=== PATIENT | female | born 1970 | race Caucasian/White ===

== ENCOUNTER 2016-07-21 10:13 | Emergency (ER) | payer OTHER ==
[~2016-07-21] VITALS: Ht 165.1 cm; Wt 86.0 kg
[~2016-07-21 10:13] MED LIST: ASPI1TAB7 PO; CYCL5TAB PO; HYDR-4246 PO; IBUP-1547 PO; IBUP-1724 PO; MULT-942 PO CHEW
--- OUTSIDE RECORDS SUMMARY | 2016-07-21 10:18 | XMS REPORT | Continuity of Care Document ---
Author Author [facility] Organization [facility] Address Unknown Phone Unavailable Support Name Relationship Address Phone AMIRA CHAKRABORTY MD Caregiver [address] [place] [address] CARRILLO KENNEDY MD Caregiver [address] [place] [address] [place] [phone] PANTERA CANALES Next Of Kin [address] [place], [place] [id number] Insurance Providers Payer Name Policy Number Subscriber Name Relationship Meritain n [id number] Dimitrios Vega 17 Self Advance Directives Directive Response Recorded Date/Time Advanced Directives Type None 02/14/14 8:15pm Problems Medical Problems Problem Onset Date Status Paronychia Unknown Active Medications Medication Dose Route Sig Days/Qty Instructions Order Date Discontinued Date Status ["Water Pill"] 06/25/09 12/10/09 Discontinued Amitriptyline Hcl 1 Tab PO BEDTIME 12/10/09 08/19/10 Discontinued Potassium Chloride 1 Tab PO DAILY 12/10/09 08/19/10 Discontinued [Depo-Provera] EVERY 3 MONTHS 12/10/09 08/19/10 Discontinued Allopurinol 300 Mg PO DAILY 12/10/09 08/19/10 Discontinued Chlorthalidone 25 Mg PO DAILY 12/10/09 08/19/10 Discontinued Diltiazem Hcl 60 Mg PO DAILY 12/10/09 08/19/10 Discontinued Promethazine Hcl 25 Mg PO DAILY 12/10/09 08/19/10 Discontinued Furosemide 20 Mg PO DAILY 12/10/09 08/19/10 Discontinued Phentermine Hcl 1 Cap PO DAILY 03/06/10 08/19/10 Discontinued Pilocarpine Hcl 1 Tab PO THREE TIMES A DAY 03/06/10 08/19/10 Discontinued [no medications] 02/14/14 Active Sulfamethoxazole/Trimethoprim 1 Tab PO TWICE A DAY 20 Qty 02/14/14 Active Hydrocodone/Acetaminophen 1 Tab PO EVERY 4-6 HOURS PRN PAIN 15 Qty Active Social History Social History Problem Response Recorded Date/Time Smoking Status Never smoker 02/14/2014 8:17pm Chewing Tobacco Status No 02/14/2014 8:17pm Hx Substance Use No 02/14/2014 8:17pm Hx Alcohol Use Y RARELY 02/14/2014 8:17pm Hospital Discharge Instructions No hospital discharge instructions. Plan of Care No plan of care. Functional Status Query Response Date Recorded Physical Hygiene Self February 14, 2014 8:17pm Disabilities None February 14, 2014 8:17pm Devices Used None February 14, 2014 8:17pm Dressing Self February 14, 2014 8:17pm Ambulation Self February 14, 2014 8:17pm Diet Self February 14, 2014 8:17pm Mental Status Alert Oriented February 14, 2014 8:17pm Disabilities None February 14, 2014 8:17pm Devices Used None February 14, 2014 8:17pm Physical Hygiene Self February 14, 2014 8:17pm Dressing Self February 14, 2014 8:17pm Ambulation Self February 14, 2014 8:17pm Diet Self February 14, 2014 8:17pm Allergies, Adverse Reactions, Alerts Allergen Type Severity Reaction Status Last Updated ketorolac tromethamine Adverse Reaction Unknown VOMITING,HOT,SICK Active 02/14/14 Morphine Adverse Reaction Unknown NAUSEA, HEADACHE Active 02/14/14 Immunizations Name Given Type Hx Influenza Vaccination N Historical Hx Pneumococcal Vaccination No Historical Hx Influenza Vaccination N Historical Vital Signs Acute Vital Signs Vital Response Date/Time Temperature (Fahrenheit) 97.4 deg F (96.8 - 99.1) Temperature (Calculated Celsius) 36.77182 degrees C (36.0 - 37.3) Pulse Rate (adult) 78 bpm (60 - 100) Respiratory Rate 14 breaths/min (10 - 20) O2 Sat by Pulse Oximetry 97 % (90 - 100) Blood Pressure 148/88 mm Hg Height 5 ft 6 in Weight 113 lb Body Mass Index 18.0 kg/m^2 Results Test Source Date Result Interp. Ref. Range Comments Alanine Aminotransferase (ALT/SGPT) August 25, 2011 3:15pm 34 U/L N 9-52 Albumin August 25, 2011 3:15pm 5.0 G/DL N 3.5-5.0 Albumin/Globulin Ratio August 25, 2011 3:15pm 1.7 RATIO N 1.1-2.2 Alkaline Phosphatase August 25, 2011 3:15pm 126 U/L N 38-126 Amylase Level August 25, 2011 3:15pm 54 U/L N 30-110 Anion Gap August 25, 2011 3:15pm 15 MEQ/L N 5-15 Aspartate Amino Transf (AST/SGOT) August 25, 2011 3:15pm 30 U/L N 14-36 BUN/Creatinine Ratio August 25, 2011 3:15pm 16 RATIO N 6-26 Basophils # (Auto) August 25, 2011 3:15pm 0.0 T/MM3 N 0-0.2 Basophils (%) (Auto) August 25, 2011 3:15pm 0.3 % N 0-2 Blood Urea Nitrogen August 25, 2011 3:15pm 13.0 MG/DL N 7-17 Calcium Level August 25, 2011 3:15pm 10.2 MG/DL N 8.4-10.2 Calculated Osmolality August 25, 2011 3:15pm 275 MOSM/KG N 261-280 Carbon Dioxide Level August 25, 2011 3:15pm 22 MEQ/L N 22-30 Chloride Level August 25, 2011 3:15pm 106 MEQ/L N 98-107 Cholesterol Level December 01, 2009 7:51am 145 MG/DL N 132-199 Cholesterol/HDL Ratio December 01, 2009 7:51am 5.2 RATIO H 0-4.0 Conjugated Bilirubin March 06, 2010 10:30am 0.00 MG/DL N 0.00-0.30 Creatinine August 25, 2011 3:15pm 0.8 MG/DL N 0.7-1.2 Eosinophils # (Auto) August 25, 2011 3:15pm 0.1 T/MM3 N 0-0.5 Eosinophils (%) (Auto) August 25, 2011 3:15pm 0.8 % N 0-4 Globulin August 25, 2011 3:15pm 2.9 G/DL N 2.4-3.6 Glucose Level August 25, 2011 3:15pm 94 MG/DL N 65-110 Helicobacter pylori Antibodies August 25, 2011 3:15pm Negative - Helicobacter pylori IgG Antibody September 12, 2008 8:49am Sent out - Hematocrit August 25, 2011 3:15pm 44.9 % N 36-46 Hemoglobin August 25, 2011 3:15pm 15.5 GM/DL N 12-16 Hemoglobin A1c August 25, 2011 3:15pm 5.4 % L 6-7 <6.0 NON-DIABETIC RANGE6.0-7.0 ADA THERAPEUTIC RANGE >7.0 ACTION SUGGESTED Human Chorionic Gonadotropin, Qual August 19, 2010 12:00am Negative - LDL Cholesterol, Calculated December 01, 2009 7:51am 64.6 L 66-159 Lipase August 25, 2011 3:15pm 94 U/L N 23-300 Lymphocytes # (Auto) August 25, 2011 3:15pm 2.1 T/MM3 N 1-4.8 Lymphocytes (%) (Auto) August 25, 2011 3:15pm 35.1 % N 23-45 Mean Corpuscular Hemoglobin August 25, 2011 3:15pm 28.6 UUG N 26-34 Mean Corpuscular Hemoglobin Concent August 25, 2011 3:15pm 34.5 GM/DL N 31- 37 Mean Corpuscular Volume August 25, 2011 3:15pm 82.8 UM3 N 80-100 Mean Platelet Volume August 25, 2011 3:15pm 10.1 UM3 N 9.4-12.4 Monocytes # (Auto) August 25, 2011 3:15pm 0.4 T/MM3 N 0-0.8 Monocytes (%) (Auto) August 25, 2011 3:15pm 7.0 % N 0-9.0 Neutrophils # (Auto) August 25, 2011 3:15pm 3.4 T/MM3 N 1.8-7.7 Neutrophils (%) (Auto) August 25, 2011 3:15pm 56.6 % N 33-66 Platelet Count August 25, 2011 3:15pm 244 T/MM3 N 130-400 Potassium Level August 25, 2011 3:15pm 3.9 MEQ/L N 3.6-5 RDW Standard Deviation August 25, 2011 3:15pm 44.3 FL N 36.9-50.2 Red Blood Count August 25, 2011 3:15pm 5.42 M/MM3 H 4.00-5.20 Sodium Level August 25, 2011 3:15pm 143 MEQ/L N 134-144 Thyroid Stimulating Hormone (TSH) August 20, 2010 9:55am 1.05 MIU/L N 0.47-4.68 Total Bilirubin August 25, 2011 3:15pm 0.70 MG/DL N 0.20-1.30 Total Protein August 25, 2011 3:15pm 7.9 G/DL N 6.3-8.2 Triglycerides Level December 01, 2009 7:51am 262 MG/DL H 35-135 Troponin I March 06, 2010 10:30am 0.00 ng/ml N 0-0.08 Unconjugated Bilirubin March 06, 2010 10:30am 0.52 MG/DL N 0.00-1.10 Urine Bacteria December 10, 2009 9:29pm 1+ H - Has specimen been collected/obtained? Y Urine Bilirubin March 06, 2010 9:21am 2+ H - Has specimen been collected/obtained? Y Urine Blood March 06, 2010 9:21am Negative - Has specimen been collected/obtained? Y Urine Collection Type March 06, 2010 9:21am Voided - Has specimen been collected/obtained? Y Urine Color March 06, 2010 9:21am Yellow - Has specimen been collected/obtained? Y Urine Culture Indicated December 10, 2009 9:29pm Cult not set up - Has specimen been collected/obtained? Y Urine Glucose (UA) March 06, 2010 9:21am Negative - Has specimen been collected/obtained? Y Urine Ketones March 06, 2010 9:21am Negative - Has specimen been collected/obtained? Y Urine Leukocyte Esterase March 06, 2010 9:21am Negative - Has specimen been collected/obtained? Y Urine Nitrite March 06, 2010 9:21am Negative - Has specimen been collected/obtained? Y Urine Test October 08, 2010 6:07am Negative - Has specimen been collected/obtained? Y Urine Protein March 06, 2010 9:21am Negative - Has specimen been collected/obtained? Y Urine RBC December 10, 2009 9:29pm None seen /HPF - Has specimen been collected/obtained? Y Urine Specific [place] March 06, 2010 9:21am 1.010 L - Has specimen been collected/obtained? Y Urine Squamous Epithelial Cells December 10, 2009 9:29pm Few - Has specimen been collected/obtained? Y Urine Turbidity March 06, 2010 9:21am Clear - Has specimen been collected/obtained? Y Urine Urobilinogen March 06, 2010 9:21am Normal EU/DL - Has specimen been collected/obtained? Y Urine WBC December 10, 2009 9:29pm 5-10 /HPF H - Has specimen been collected/obtained? Y Urine pH March 06, 2010 9:21am 6.0 - Has specimen been collected/ obtained? Y VLDL Cholesterol December 01, 2009 7:51am 52.4 MG/DL H 0-28 White Blood Count August 25, 2011 3:15pm 6.0 T/MM3 N 4.5-11.0 Lab Scanned Report August 25, 2011 9:45pm LAB TEST FORM REQUEST [id number] - HDL Cholesterol Direct December 01, 2009 7:51am 28 MG/DL L 40-60 Glomerular Filtration Rate Calc August 25, 2011 3:15pm 79 - Immature Granulocyte # (Auto) August 25, 2011 3:15pm 0.01 T/MM3 N 0.00- 0.03 Immature Granulocyte % (Auto) August 25, 2011 3:15pm 0.2 % N 0.0-0.5 Urine Microscopic Not Indicated March 06, 2010 9:21am Not indicated - Has specimen been collected/obtained? Y Urine Culture Urine, Clean Catch Voided December 10, 2009 9:25pm Gram Positive Mauricio Procedures No known history of procedures. Encounters Encounter Location Date/Time Departed Emergency Room [facility] 02/14/14 7:39pm Recent Diagnosis
--- OUTSIDE RECORDS SUMMARY | 2016-07-21 10:18 | XMS REPORT ---
Author Author Theo Roca Organization [employer] Address Unknown Phone Unavailable Care Team Providers Care Editor Greeting Card Name Role Phone Theo Roca CP Unavailable Allergies, Adverse Reactions, Alerts Substance Reaction Event Type Morphine Sulfate intolerance, migraines Drug Allergy Ketorolac Tromethamine intolerance, migraines Drug Allergy Problems Problem Type Condition ICD-9 Code Onset Dates Condition Status Problem Obesity, unspecified 278.00 Active Assessment Conjunctivitis 372.00 Active Problem Elevated blood pressure reading without diagnosis of hypertension 796.2 Active Medications Medication Code System Code Instructions Start Date End Date Status Dosage Erythromycin [facility] [address]-25 5 MG/GM Ophthalmic three a day Mar 28, 2014 Apr 02, 2014 Active 1 small amount to both eyes Tylenol PM Extra Strength [facility] [address]-51 500-25 MG Orally Once a day Active 1 tablet at bedtime as needed Procedures Procedure Coding System Code Date OFFICE VISIT, EST-LOW COMPLEXITY (15 MIN.) CPT-4 88482 Mar 28, 2014 Vital Signs Date/Time: Mar 28, 2014 Height 65 inches Weight 179.75 lbs Temperature 98.2 F Blood Pressure Diastolic 95 mm Hg Blood Pressure Systolic 152 mm Hg Cardiac Monitoring Heart Rate 76 Beats per Minute BMI 29.91 Index Respiratory Rate 20 per Minute Results No Known Results Summary Purpose [employer] Submission
[2016-07-21 10:26] VITALS: Ht 165.1 cm; Wt 86.0 kg
[2016-07-21] MEDS ORDERED: ASCO-324 PO (10:43)
[2016-07-21] MEDS ORDERED: MULT1TAB69 PO (10:43)
--- OUTSIDE RECORDS SUMMARY | 2016-07-21 10:48 | XMS REPORT | Continuity of Care Document ---
Author Author [facility] Organization [facility] Address Unknown Phone Unavailable Support Name Relationship Address Phone AMIRA CHAKRABORTY MD Caregiver [address] [place] [address] CARRILLO KENNEDY MD Caregiver [address] [place] [address] [place] [phone] PANTERA CANALES Next Of Kin [address] [place], [place] [id number] Insurance Providers Payer Name Policy Number Subscriber Name Relationship Meritain n [id number] Dimitrios Vega 17 Self Advance Directives Directive [...] F (96.8 - 99.1) Temperature (Calculated Celsius) 36.68542 degrees C (36.0 - 37.3) Pulse Rate [...] Has specimen been collected/obtained? Y Urine Specific [place] March 06, 2010 9:21am 1.010 L - [...] 25, 2011 9:45pm LAB TEST FORM REQUEST [id number] - HDL Cholesterol Direct December 01, 2009 [...] Encounters Encounter Location Date/Time Departed Emergency Room [facility] 02/14/14 7:39pm Recent Diagnosis
[2016-07-21] MEDS ORDERED: NORMAL SALINE 1,000 ML IV ONE (10:59)
--- NOTE | 2016-07-21 11:08 | NUR ---
REPORT REPORT FROM TAWNYA WILL. BHAVANA RELEASED
[2016-07-21 11:09] LABS: BLOOD, URINE NEGATIVE (NEGATIVE); COLOR,URINE YELLOW (YELLOW); LEUKOCYTE ESTERASE ,URINE NEGATIVE (NEGATIVE); NITRITE,URINE NEGATIVE (NEGATIVE); UROBILINOGEN,URINE 0.2 EU/DL (NORMAL)
[2016-07-21 11:13] LABS: BASOPHILS % (AUTO) 0.5 % (0-2); EOSINOPHILS # (AUTO) 0.1 T/MM3 (0-0.5); HCT - HEMATOCRIT 43.6 % (36-46); HGB - HEMOGLOBIN 15.1 GM/DL (12-16); IMMATURE GRANULOCYTE # (AUTO) 0.03 T/MM3 (0.00-0.03); IMMATURE GRANULOCYTE % (AUTO) 0.4 % (0.0-0.5); LYMPHOCYTES # (AUTO) 2.8 T/MM3 (1-4.8); LYMPHOCYTES % (AUTO) 36.2 % (23-45); MEAN CORPUSCULAR HGB 29.3 UUG (26-34); MEAN CORPUSCULAR HGB CONC(MCHC 34.6 GM/DL (31-37); MEAN CORPUSCULAR VOLUME 84.7 UM3 (80-100); MEAN PLATELET VOLUME 10.1 UM3 (9.4-12.4); MONOCYTES # (AUTO) 0.4 T/MM3 (0-0.8); MONOCYTES % (AUTO) 5.2 % (0-9.0); NEUTROPHILS #(AUTO)-ABSOLUTE 4.3 T/MM3 (1.8-7.7); NEUTROPHILS % (AUTO) 56.7 % (33-66); RED BLOOD COUNT 5.15 M/MM3 (4.00-5.20); WBC - WHITE BLOOD COUNT 7.6 T/MM3 (4.5-11.0)
[2016-07-21 11:21] LABS: ANION GAP 12 MEQ/L (5-15); BUN/CREATININE RATIO 23 RATIO (6-26); CALCIUM 9.9 MG/DL (8.4-10.2); CHLORIDE 108 MEQ/L (98-107); CO2 - CARBON DIOXIDE 26 MEQ/L (22-30); CREATININE 0.7 MG/DL (0.7-1.2); GLOMERULAR FILTRATION RATE 90; GLUCOSE 143 MG/DL (65-110); SODIUM 146 MEQ/L (134-144)
[2016-07-21] MEDS ORDERED: ONDANSETRON 4mg/2ml INJECTION IV ONE (11:30)
[2016-07-21] MEDS ORDERED: HYDROMORPHONE 2mg/ml INJECTION IV ONE (11:30)
[2016-07-21] MEDS ORDERED: IOHEXOL 300 MG/ML 75ml INJECTION ONE (11:36)
[2016-07-21] MEDS ORDERED: SALINE FLUSH 10ml SYRINGE ONE (11:37)
[2016-07-21] MEDS ORDERED: NORMAL SALINE 100 ML ONE (11:37)
--- NOTE | 2016-07-21 12:02 | ERPDOC ---
Departure Disposition Decision Date: Jul 21, 2016 Disposition Decision Time: 13:40 Disposition: 01 DISCHARGED HOME, SELF-CARE Impression Impression Impression: Primary Impression: PID (pelvic inflammatory disease) Additional Impression: Abdominal pain, left upper quadrant Severity: Moderate Condition: Stable Seen By: Physician only Referrals: YOLANDA SHAFFER APRN (Family) 1 Week Patient Instructions: Pelvic Inflammatory Disease (ED) Problems/Meds/Labs Reviewed?: Yes Medications reviewed and manag: Yes Additional Instructions: Home to rest today. Take [place] for severe pain. May supplement with Ibuprofen 600-800 mg between doses for mild to moderate pain. Start antibiotics as directed. Follow up with your doctor if you are not getting better. Follow up care ordered?: Yes Mental Status: Alert, Oriented Scripts Hydrocodone/Acetaminophen ([place] 5-325 Tablet) 5-325 Tablet 1-2 TAB PO Q6H Y for PAIN, #20 TAB 0 Refills Prov: PRECIOUS SIMMONS MD 07/21/16 Doxycycline Monohydrate (Doxycycline Monohydrate) 100 Mg Capsule 1 CAP PO BID, #20 CAP 0 Refills Prov: PRECIOUS SIMMONS MD 07/21/16 Metronidazole (Metronidazole) 500 Mg Tablet 500 MG PO Q6HR for 10 Days, #40 TAB 0 Refills Prov: PRECIOUS SIMMONS MD 07/21/16 HPI - Abdominal Pain General Chief Complaint: Abdominal Pain Stated Complaint: VAGINAL BLEEDIG POST HYSTERECTOMY, ABD PAIN Time Seen by Provider: 10:32 Source: patient, RN notes reviewed, old records History/Exam Limitations: no limitations HPI - Abdominal Pain Initial Comments This patient comes into the ER complaining of seeing a dark spot of blood in her underwear this morning (she had a hysterectomy several years ago). She then developed left sided abdominal pain. This pain feels different than her kidney stones, is not colicky in nature and does not radiate to her groin. There is some mild nausea as well. She has not noted any hematuria, no other vaginal discharge. No blood in her stools, no diarrhea. No history of diverticulitis. Occurred At: home Onset: Rapid Duration: 1-3 hrs Pain Scale: Now: 4/10, Worst: 8/10 Quality: sharpness Location: left flank Radiation: no radiation Activities at Onset: none Modifying Factors: WORSE WITH: palpation Associated Symptoms: nausea/vomiting Hx of Similar Symptoms: No Allergies: Coded Allergies: ketorolac tromethamine (Unverified Adverse Reaction, Unknown, VOMITING,HOT ,SICK, 06/25/15) morphine (Verified Adverse Reaction, Unknown, NAUSEA, HEADACHE, 06/25/15) Past History Past Medical History Metabolic: hypertension (not currently on meds) ENMT: other GI: IBS Female: kidney stones Neurological: migraines Surgical History General: gallbladder, neck, other (cystoscopy/stone basketing) Reproductive/: hysterectomy, other (endometrial biopsy), tubal ligation Family History Family PMH: FOUND: other Vaccines Hx Influenza Vaccination: No () Hx Pneumococcal Vaccination: No Social History Smoking Status: Unknown if ever smoked Substance Use Type: does not use Alcohol Intake: occasionally Record Review Pertinent history updated: Yes Review of Systems Constitutional Constitutional: appetite decrease, DENIES: chills, dizziness, fever, weakness Eyes General: DENIES: pain Lids/Accessories: DENIES: erythema Vision: DENIES: blurring ENMT Ears: DENIES: pain Hearing: DENIES: hearing loss Balance: DENIES: vertigo Sinuses: DENIES: congestion, rhinorrhea Mouth/Throat: DENIES: sore throat Teeth: DENIES: pain Cardiovascular Cardiac: DENIES: chest pain Rhythm/Rate: DENIES: palpitations Vascular: DENIES: pedal edema, unilateral swelling Pulmonary Respiratory: DENIES: cough, dyspnea, sputum GI Upper Abdomen: nausea, pain, see HPI, DENIES: heartburn/indigestion, hematemesis Lower Abdomen: DENIES: blood in stool, diarrhea General: renal stones, DENIES: burning, cloudy urine, discharge, dysuria, frequency, hematuria, hx of STD's, urgency Female: pelvic pain Musculoskeletal General: DENIES: pain, weakness Integumentary Skin: DENIES: itching, rash Neurological General: DENIES: headache, memory disturbances, seizures, syncope Psychiatric Psychiatric: DENIES: anxiety, depression Endocrine Endocrine: DENIES: heat/cold intolerance Hematologic/Lymphatic Hematologic/Lymphatic: DENIES: anemia, easy bruising All other Systems All Other Systems: Reviewed and Negative Physical Exam General General Nourishment: well nourished, well developed, appears stated age, adult , obese Pediatric General Nourishment: consolable Vitals and Pain Weight: Kilograms: 86.000 Height (feet): 5 Height (inches): 5.00 Triage Pain Scale: Normal Exams: Head: Normocephalic w/o trauma Eyes: Pupils are PERRLA w/ EOMI, No scleral icterus, irritation, or foreign bodies noted ENMT: No facial trauma, nasal exudates, pharyngeal erythema, or exudates are noted Dental: No fractured, loose, or missing teeth noted Neck: Full range of motion, without adenopathy, JVD, bruits or thyromegaly Chest/Resp: Clear all kaur, with good airflow, and symmetry bilaterally CV: Regular rate and rhythm, without murmur or gallop, Pulses 2+ all extremities, capillary refill, <2 seconds all ext., no pedal edema noted Abdomen: Bowel sounds positive, non-distended, no hepatosplenomegaly, masses or bruits noted : Vulva without rashes, or lesions, no exudate or bleeding, noted externally Lymphatic: No lymphadenopathy, or lymphedema noted Musculoskeletal: No tenderness, or deformity noted, good range of motion, all extremities Integumentary: No rashes, hives, or bruising noted, hair and nails, without abnormality Neurologic: Patient is alert, and oriented, cranial nerves, motor/sensory/ cerebellar, exams w/o gross deficits, to observation Psychiatric: Patient exhibits, appropriate attention, emotion and affect Abdomen (brief) Comments tender to left abdomen anteriorly -- most prominent LUQ. mod voluntary guarding , no rebound (brief) Comments small bright red spot left vaginal wall that looks like it had recently bled. No active bleeding, small amount white to light yellow discharge noted, swabs taken. Marked tenderness of pelvic adnexa left greater than right. The vaginal cuff area on bimanual is very tender and feels like there is a band in the proximal vagina. Differential Diagnoses Considering: Diverticulitis, Ovarian Cyst, PID/Endometritis, Renal Colic, Ulcerative Colitis, UTI, Volvulus, Other Progress Results/Orders Orders Lab Results Medications Current ED Medications Sodium Chloride (Normal Saline IV) 1,000 ml @ 0 mls/hr Q0M ONCE IV Last administered on 07/21/16 11:21; Start 07/21/16 at 10:59; Stop 07/21/16 at 11:00 ; Status DC Hydromorphone HCl (Dilaudid) 1 mg O ONCE IV Last administered on 07/21/16 11: 39; Start 07/21/16 at 11:30; Stop 07/21/16 at 11:31; Status DC Ondansetron HCl (Zofran) 4 mg O ONCE IV Last administered on 07/21/16 11:38; Start 07/21/16 at 11:30; Stop 07/21/16 at 11:31; Status DC Iohexol 1 bottle 1 bottle STK-MED ONCE .ROUTE ; Start 07/21/16 at 11:36; Stop at 11:37; Status DC Sodium Chloride (NS) 100 ml @ As Directed STK-MED ONCE .ROUTE ; Start 07/21/16 at 11:37; Stop 07/21/16 at 11:38; Status DC Sodium Chloride (Iv Flush) 10 ml STK-MED ONCE .ROUTE ; Start 07/21/16 at 11:37; Stop 07/21/16 at 11:38; Status DC Oxycodone/ Acetaminophen (Percocet 10/325) 1 tab O ONCE PO Last administered on 07/21/16 14:06; Start 07/21/16 at 14:15; Stop 07/21/16 at 14:16; Status DC Progress Progress Patient's one blood spot that occurred earlier today but has not bled since seems to be from the left vaginal wall. Labs mostly normal except for mild hypernatremia/chloremia and hyperglycemia. No elevation of white count, UA normal. CT abd/pelvis done -- no evidence of any intra-abdominal process that would account for the pain. Suspect this is pelvic in nature although she has no uterus, bimanual exam was very tender. Analgesics helped the pain. Will treat as though it is a PID type picture, although the antibiotics chosen would be good for diverticulitis also. Pelvic swabs show some gm positive rods and cocci. Pt requests a work note. If this is not improving in 24-48 hours on antibiotics, she is to follow up. PRECIOUS SIMMONS MD Jul 21, 2016 12:01 Absolute Neutrophils (auto) 4.3T/MM3 Absolute Lymphocytes (auto) 2.8T/MM3 Absolute Monocytes (auto) 0.4T/MM3 Absolute Eosinophils (auto) 0.1T/MM3 Absolute Basophils (auto) 0.0T/MM3 Turbidity < 20 Sodium Level 146MEQ/L Potassium Level 4.0MEQ/L Chloride Level 108MEQ/L Carbon Dioxide Level 26MEQ/L Anion Gap 12MEQ/L Blood Urea Nitrogen 16.0MG/DL Creatinine 0.7MG/DL Glomerular Filtration Rate Calc 90 BUN/Creatinine Ratio 23RATIO Glucose Level 143MG/DL Calculated Osmolality 284MOSM/KG Calcium Level 9.9MG/DL Icterus Index < 2 Chemistry Specimen Hemolysis < 15 Chlamydia trachomatis DNA (PCR) Pending N. gonorrhoeae DNA Specimen Source Pending Neisseria gonorrhoeae DNA (PCR) Pending Medications Current ED Medications Sodium Chloride (Normal Saline IV) 1,000 ml @ 0 mls/hr Q0M ONCE IV Last administered on 07/21/16 11:21; Start 07/21/16 at 10:59; Stop 07/21/16 at 11:00 ; Status DC Hydromorphone HCl (Dilaudid) 1 mg O ONCE IV Last administered on 07/21/16 11: 39; Start 07/21/16 at 11:30; Stop 07/21/16 at 11:31; Status DC Ondansetron HCl (Zofran) 4 mg O ONCE IV Last administered on 07/21/16 11:38; Start 07/21/16 at 11:30; Stop 07/21/16 at 11:31; Status DC Iohexol 1 bottle 1 bottle STK-MED ONCE .ROUTE ; Start 07/21/16 at 11:36; Stop at 11:37; Status DC Sodium Chloride (NS) 100 ml @ As Directed STK-MED ONCE .ROUTE ; Start 07/21/16 at 11:37; Stop 07/21/16 at 11:38; Status DC Sodium Chloride (Iv Flush) 10 ml STK-MED ONCE .ROUTE ; Start 07/21/16 at 11:37; Stop 07/21/16 at 11:38; Status DC PRECIOUS SIMMONS MD Jul 21, 2016 12:01
--- NOTE | 2016-07-21 12:15 | DI ---
Indication: ITS.REASON: left abd pain PROCEDURE: CT ABD/PELVIS W/CONTRAST ONLY: Encounter: Initial Comparison: Renal CT dated June 25, [address] dated August 14, 2008 Technique: Axial CT images were performed through the abdomen and pelvis after the administration of intravenous contrast. Coronal and sagittal two-dimensional reformats. Automated Exposure Control and Iterative Reconstruction dose reducing techniques were utilized. Contrast: Omnipaque 300 75 mL Findings: The lung bases are grossly clear. The liver shows borderline fatty infiltration without focal enhancing mass or bile duct dilatation. The gallbladder is surgically absent. Small hiatal hernia. The spleen with accessory splenule, pancreas and adrenal glands are within normal limits. Right kidney is normal. Tiny subcentimeter cyst arising from the lower pole of the left kidney. No hydronephrosis or obvious stone disease. Pelvic phleboliths. The bladder is normal. Uterus is surgically absent. No free fluid. No evidence of significant diverticulosis or acute diverticulitis. No bowel obstruction. Bone windows show no acute findings. Impression: No acute disease process seen. No clear etiology for the patient's left abdominal pain. .
--- NOTE | 2016-07-21 12:16 | NUR ---
UPDATE PATIENT STATES PAIN IS BETTER
[2016-07-21] MEDS ORDERED: HYDR-4246 PO (13:49)
[2016-07-21] MEDS ORDERED: DOXY100C40 PO (13:49)
[2016-07-21] MEDS ORDERED: METR-116 PO (13:49)
--- NOTE | 2016-07-21 13:55 | NUR ---
PROVIDER DR. SIMMONS IN THE ROOM
[2016-07-21 14:10] VITALS: BP 141/73; PULSE 75; RESP 16; TEMP 97.8; O2SAT 99
--- NOTE | 2016-07-21 14:10 | NUR ---
DISMISS INSTRUCTIONS REVIEWED AND GIVEN TO PATIENT VERBALIZED UNDERSTANDING RX X3 GIVEN, DISPENSED WORK NOTE AMBULATES TO EXIT AND LEAVES WITH ADULT FEMALE
[2016-07-21] MEDS ORDERED: OXYCODONE/APAP 10mg/325mg TABLET PO ONE (14:15)
== END 2016-07-21 14:45 | disposition home or self-care (01) ==
LOC: ED 10:13
DX: N73.9 Female pelvic inflammatory disease, unspecified (principal)
CPT/HCPCS: 80048; 81003; 85025; 87070; 87205; 87210; 87220; 87491; 87591